=== PATIENT | male | born 1995 | race Caucasian/White ===

== ENCOUNTER 2021-06-27 21:54 | Emergency (ER) | payer OTHER, SELFPAY ==
[2021-06-27 21:58] VITALS: BP 139/80; PULSE 97; RESP 16; TEMP 37.2; O2SAT 99; BMI 33.6
[2021-06-27 22:28] LABS: IDNOW Serial# 9DD0AD1C; Strep A Nucleic Acid Negative (Negative)
--- NOTE | 2021-06-27 22:33 | ED.URI ---
HPI - URI/Sore Throat General Chief Complaint: Upper Respiratory Symptoms Stated Complaint: swollen tonsils Time Seen by Provider: 06/27/21 22:33 Source: patient Mode of arrival: ambulatory Limitations: no limitations History of Present Illness HPI Narrative: Patient c/o sore throat for last 1 week was seen at urgent care 2 days ago strep and COVID test was negative started on amoxicillin comes here as still having throat pain and tonsils are red pain in the neck when swallows had fever prior starting the antibiotic now there is no fever Related Data Previous Rx's Medication Instructions Recorded azithromycin 500 mg tablet 500 mg PO DAILY 2 Days #2 tab 06/27/21 (Zithromax) Allergies Allergy/AdvReac Type Severity Reaction Status Date / Time No Known Allergies Allergy Verified 06/27/21 22:03 Review of Systems Review of Systems: Yes all other systems are reviewed and are negative [facility] Past Medical History Medical History Asthma Social History Social History Advance Directives: No Advance Directives Information Provided: No Physical Exam Vital Signs: Vital Signs: Last Vital Signs Temp 99 F 06/27/21 21:58 Pulse 97 06/27/21 21:58 Resp 16 06/27/21 21:58 BP 139/80 06/27/21 21:58 Pulse Ox 99 06/27/21 21:58 Body Mass Index 33.6 Appearance: Alert. Oriented X3. No acute distress. ENT: Inflamed tonsils b/l , without any exudate uvula midline Neck: Normal inspection. Neck supple. Bilateral anterior cervical lymphadenopathy CVS: Normal heart rate and rhythm. Pulses normal. Respiratory: No respiratory distress. Equal air entry bilateral, no wheezing/rales/rhonchi Abdomen: Soft and nontender. Bowel sounds are present, Skin: Skin warm and dry. Normal skin color. Normal skin turgor. Neuro: Oriented X 3. MDM - URI/Sore Throat Lab Data Labs: Lab Results 06/27/21 Range/Units 22:04 S. pyogenes GrpA ALESSIA Negative (Negative) Discharge Plan Discharge Clinical Impression: Pharyngitis Qualifiers: Pharyngitis/tonsillitis etiology: other specified organisms Qualified Code(s): J02.8 - Acute pharyngitis due to other specified organisms Patient Disposition: Home, Self-Care Instructions: Pharyngitis (ED) Additional Instructions: Drink Plenty of fluids Continue amoxicillin and start taking Zithromax as prescribed Saline gargles Report to the ER/PCP if worsening of the swelling/high fever/difficulty in swallowing next 2 days Prescriptions: New azithromycin [Zithromax] 500 mg tablet 500 mg PO DAILY 2 Days Qty: 2 RF: 0
[2021-06-27] MEDS: Azithromycin 500 MG TABLET PO (22:46)
== END 2021-06-27 23:51 | disposition home or self-care (01) ==
PROVIDERS: Emergency Provider Internal Medicine
DX: J02.8 Acute pharyngitis due to other specified organisms (principal); Z20.822 Contact with and (suspected) exposure to COVID-19
CPT/HCPCS: 36415; 87651; 99283

== ENCOUNTER 2021-06-30 21:32 | Emergency (ER) | payer OTHER, SELFPAY ==
--- NOTE | ~2021-06-30 | CT_ITS ---
EXAMINATION: CT SOFT TISSUE NECK WITH CONTRAST CLINICAL INFORMATION: Sore throat with lymphadenopathy, question abscess COMPARISON: None TECHNIQUE: Following the intravenous administration of 60 of 100 mL of Omnipaque 350 intravenous contrast, helical imaging was performed in the axial plane with generation of coronal and sagittal reformatted images. This CT examination was performed using dose optimization techniques as appropriate, variously including the following: *Automated exposure control *Adjustment of mA and/or kV according to patient size (this includes techniques or standardized protocols for targeted exams where dose is matched to indication/reason for exam; i.e. extremities or head) *Use of iterative reconstruction technique DLP: 658 mGy-cm FINDINGS: There are multiple enlarged bilateral upper cervical lymph nodes measuring up to approximately 2.8 cm in length on the left. The parotid glands are homogeneous in attenuation. The submandibular glands are unremarkable. No contour abnormality or pathologic enhancement is seen within the oral cavity or pharyngeal mucosal space. Bilateral palatine tonsils appear prominent, with no associated abscess. The laryngeal structures appearing unremarkable. The parapharyngeal fat is preserved. The carotid sheath vasculature opacify normally. No extra mucosal soft tissue mass or fluid collection is seen. No retropharyngeal fluid collection is seen. The thyroid gland is normal. The superior mediastinum is unremarkable. The lung apices are clear. Small mucous retention cyst in the right maxillary sinus. Mastoid air cells are well aerated. The temporomandibular joints are normal. There is disc space narrowing at C5-C6 and C6-C7 with associated endplate osteophytes. The imaged portions of the brain parenchyma are unremarkable. CT/CT soft tissue neck w con IMPRESSION: Multiple enlarged bilateral upper cervical lymph nodes which may be reactive/inflammatory; clinical follow-up recommended to assess for resolution. No retropharyngeal or peritonsillar abscess identified. Prominence of the bilateral palatine tonsils may reflect tonsillitis in the proper clinical setting.
[2021-06-30 22:00] VITALS: BP 129/74; PULSE 95; RESP 16; TEMP 37.4; O2SAT 96; BMI 33.6
--- NOTE | 2021-06-30 22:37 | ED_ITS ---
HPI - URI/Sore Throat General Chief Complaint: General Medical Stated Complaint: Fever Time Seen by Provider: 06/30/21 22:21 Source: patient and family (Significant other at bedside) Mode of arrival: ambulatory Limitations: no limitations History of Present Illness HPI Narrative: 26-year-old male with a past medical history of asthma presenting to the ED with complaints of 10 days of a sore throat despite being on amoxicillin and a Z-Ino. He was seen at an urgent care on 06/25/2021 and placed on amoxicillin he reports he is taking as prescribed. Then he reports his symptoms worsened therefore he was seen here on 06/27/2021 and had a negative strep although was placed on a Z-Ino and instructed to take the amoxicillin and Z-Ino. Although he reports that he was instructed to return if he felt like the swelling to his neck was worse therefore he came here for further evaluation treatment because he feels like despite being on both antibiotics and taking Motrin Tylenol the sore throat has not resolved and is worsening. He reports he had a fever today of 101.0. He also reports a dry cough that started today. He denies any dizziness, headaches, neck pain/stiffness, trouble swallowing or breathing, productive cough, ear pain, chest pain or shortness of breath, dyspnea exertion, orthopnea, rashes, recent travel or sick contacts or any other symptoms complaints or concerns at this time. MD elicited complaint: sore throat Onset (ago): day(s) (Ten days) Consistency: constant and progressively worsening Severity: moderate Able to tolerate fluids by mouth: Yes Exacerbating factors: swallowing Relieving factors: nothing Associated symptoms: cough Treatments prior to arrival: other (Currently taking Motrin/Tylenol/amoxicillin and a Z-Ino) Related Data Previous Rx's Medication Instructions Recorded azithromycin 500 mg tablet 500 mg PO DAILY 2 Days #2 tab 06/27/21 (Zithromax) ibuprofen 800 mg tablet 800 mg PO Q8H PRN #14 tab 07/01/21 Allergies Allergy/AdvReac Type Severity Reaction Status Date / Time No Known Allergies Allergy Verified 06/27/21 22:03 Review of Systems Review of Systems: Constitutional : Positive fevers, No Weight loss, No Fever, No Night Sweats, No Fatigue, No Malaise ENT/Mouth : Positive sore throat, No Hearing loss, No Ear Pain, No Nasal Congestion, No Sinus Pain, No Hoarseness, No sore throat, No Rhinorrhea, No Swallowing Difficulty Eyes: No Eye Pain, No Swelling, No Redness, No Foreign Body, No Discharge, No Vision Changes Cardiovascular : No Chest Pain, No SOB, No Dyspnea on Exertion, No Orthopnea, No Edema, No Palpitations Respiratory : Positive Cough, No Sputum, No Wheezing, No Smoke Exposure, No Dyspnea Gastrointestinal : No Nausea, No Vomiting, No Diarrhea, No Constipation, No abdominal Pain, No Hematochezia, No Melena Genitourinary : no irregular bleeding, No Dysuria, No Urinary Frequency, No Hematuria, No Urinary Incontinence, No Urgency, No Flank Pain, No Urinary Flow Changes, No Hesitancy Musculoskeletal : No joint pain, No Myalgias, No Joint Swelling Skin : No Skin Lesions, No rash Neuro : No Weakness, No Numbness, No Paresthesias, No Loss of Consciousness, No Dizziness, No Headache Psych : No Anxiety/Panic, No Depression, No SI/HI/AH/VH, No Social Issues, Heme/Lymph: No Bruising, No Bleeding,No Lymphadenopathy Endocrine : No Polyuria, No Polydipsia, No Temperature Intolerance Yes all other systems are reviewed and are negative [facility] Past Medical History Attestation statement: The following information was validated with the patient. Medical History Asthma Social History Social History Advance Directives: No Advance Directives Information Provided: No Physical Exam Vital Signs: Vital Signs: Last Vital Signs Temp 98.9 F 07/01/21 00:00 Pulse 82 07/01/21 00:00 Resp 17 07/01/21 00:00 BP 114/70 07/01/21 00:00 Pulse Ox 99 07/01/21 00:00 Body Mass Index 33.6 vital signs have been reviewed as normal and appeared to be correct. Blood pressure normal. Heart rate normal. Respiration rate normal. Temperature normal. Oxygen saturation normal. Appearance: Alert. Oriented X3. No acute distress. Head: Normal external exam. Normocephalic. Atraumatic. Eyes: PERRLA. EOMI. Conjunctiva and sclera normal. Eyelids normal. ENT: EAC normal. TM's Normal. Posterior pharynx/tonsils erythematous with exudate noted and bilateral tonsils are inflamed. Uvula is midline. Patient noted to have anterior bilateral cervical chain lymphadenopathy. Moist mucous membranes. No trismus noted. No drooling noted. No muffled voice noted. Neck: Normal inspection. Neck supple. FROM. Thyroid Normal. No meningeal signs. No neck mass noted. CVS: Normal heart rate and rhythm. Heart sound normal. Pulses normal throughout. No murmurs/rales/gallops. Respiratory: No respiratory distress. Painless inspiration. Breath sounds normal. No wheezes/rales/rhonchi noted. Chest nontender. No accessory muscle usage noted or decreased air movement noted. Back: Full range of motion noted. No rashes/lesion/induration/fluctuance or signs of infection noted. Skin: Skin warm and dry. Normal skin color. Normal skin turgor. No rashes/lesions/lacerations noted. Extremities: Extremities exhibit normal range of motion. Extremities nontender. Neuro: Oriented X 3. No motor deficit. No sensory deficit. Reflexes normal. Normal steady gait. No focal neuro deficits noted. Vascular: + radial pulses Normal cap refill. No cyanosis noted to upper extremity nails Course Course Course Narrative: 22:35pm - 26-year-old male with a past medical history of asthma presenting to the ED with complaints of 10 days of a sore throat despite being on amoxicillin and a Z-Ino. He was seen at an urgent care on 06/25/2021 and placed on amoxicillin he reports he is taking as prescribed. Then he reports his symptoms worsened therefore he was seen here on 06/27/2021 and had a negative strep although was p laced on a Z-Ino and instructed to take the amoxicillin and Z-Ino. Although he reports that he was instructed to return if he felt like the swelling to his neck was worse therefore he came here for further evaluation treatment because he feels like despite being on both antibiotics and taking Motrin Tylenol the sore throat has not resolved and is worsening. He reports he had a fever today of 101.0. He also reports a dry cough that started today. Plan: Labs, ESR, CRP, Monospot, blood cultures, lactic acid, CT scan of soft tissue neck to evaluate for any acute processes such of abscesses or any other acute processes. Give a dose of Rocephin and re-evaluate. Reevaluation(s) Reevaluation #1: - labs return and patient mild anemia H&H 13.7/38.0 - carbon dioxide 21. - random glucose 118 - calcium 8.3 - total bilirubin 1.6 - AST 90 - ALT 153 - alkaline phosphate 176 - CRP 1.44 - patient positive for mononucleosis - patient negative for strep - therefore I printed out the results of all his lab work and I gave it to the patient explained to him that his LFTs are elevated today and that she should have repeat blood work within 1-2 weeks to make sure that his LFTs are improving and not worsening although this is usually seen in mononucleosis. - at this time waiting for CT scan of soft tissue neck to evaluate for any acute processes anticipate discharge if CT scan of soft tissue neck is within normal limits with follow-up with PCP within a week and to stay out of any strenuous activity for at least 6 weeks. Patient understands agrees with this plan. Time: 00:44 MDM - URI/Sore Throat Medical Records Attestation: I reviewed the patient's medical records. Lab Data Attestation: I reviewed the patient's lab results. Result diagrams: 06/30/21 23:02 06/30/21 23:02 Labs: Lab Results 06/30/21 06/30/21 06/30/21 Range/Units 23:02 23:02 23:02 WBC 7.9 (4.8-10.8) X10*3/uL RBC 4.25 L (4.60-5.80) X10*6/uL Hgb 13.7 L (14.0-18.0) g/dl Hct 38.0 L (42-52) % MCV 89.4 (80-98) fL MCH 32.2 (27.0-33.0) pg MCHC 36.1 H (31.0-36.0) g/dl RDW 12.0 (11.0-16.0) % Plt Count 210 (160-400) X10*3/uL MPV 9.8 (9.4-12.4) fL Immature Gran % (Auto) 0.8 H (0.0-0.4) % Neut % (Auto) 21.7 L (45-73) % Lymph % (Auto) 68.7 H (20-40) % [place] % (Auto) 7.8 (2-11) % Eos % (Auto) 0.4 (0-4) % Baso % (Auto) 0.6 (0-2) % Lymph # (Auto) 5.4 H (1.2-4.9) X10*3/uL [place] # (Auto) 0.6 (0.1-1.2) X10*3/uL Eos # (Auto) 0.0 (0.0-0.4) X10*3/uL Baso # (Auto) 0.1 (0.0-0.2) X10*3/uL Abs Immat Gran (auto) 0.06 H (0.00-0.03) X10*3/uL Absolute Neuts (auto) 1.7 L (2.0-8.3) X10*3/uL Absolute Nucleated RBC 0.000 (0.0-0.012) X10*3/uL Nucleated RBC % (auto) 0.0 (0.0-0.2) /100WBC Smear Tech's Comments VERIFIED ESR (0-15) MM/HR PT 12.0 (9.9-13.0) SEC INR 1.1 (0.9-1.1) Sodium 137 (135-145) mmol/L Potassium 3.6 (3.3-5.1) mmol/L Chloride 106 (96-108) mmol/L Carbon Dioxide 21 L (22-29) mmol/L Anion Gap 14 (12-20) BUN 12 (9-16) mg/dL Creatinine 0.81 (0.5-1.4) mg/dL Estim Creat Clear Calc 151.0 Estimated GFR > 60 Random Glucose 118 H (60-115) mg/dL Lactic Acid (0.5-2.0) mmol/L Calcium 8.3 L (8.4-10.2) mg/dL Magnesium 2.5 (1.6-2.6) mg/dL Total Bilirubin 1.6 H (0.0-1.0) mg/dL AST 90 H (5-37) U/L ALT 153 H (0-40) U/L Alkaline Phosphatase 176 H (39-117) U/L C-Reactive Protein 1.44 H (< or = 0.50) mg/dL Total Protein 7.1 (6.5-8.0) g/dL Albumin 4.3 (3.5-5.0) g/dL Monoscreen (Negative) S. pyogenes GrpA ALESSIA (Negative) 06/30/21 06/30/21 06/30/21 Range/Units 23:02 23:02 23:02 WBC (4.8-10.8) X10*3/uL RBC (4.60-5.80) X10*6/uL Hgb (14.0-18.0) g/dl Hct (42-52) % MCV (80-98) fL MCH (27.0-33.0) pg MCHC (31.0-36.0) g/dl RDW (11.0-16.0) % Plt Count (160-400) X10*3/uL MPV (9.4-12.4) fL Immature Gran % (Auto) (0.0-0.4) % Neut % (Auto) (45-73) % Lymph % (Auto) (20-40) % [place] % (Auto) (2-11) % Eos % (Auto) (0-4) % Baso % (Auto) (0-2) % Lymph # (Auto) (1.2-4.9) X10*3/uL [place] # (Auto) (0.1-1.2) X10*3/uL Eos # (Auto) (0.0-0.4) X10*3/uL Baso # (Auto) (0.0-0.2) X10*3/uL Abs Immat Gran (auto) (0.00-0.03) X10*3/uL Absolute Neuts (auto) (2.0-8.3) X10*3/uL Absolute Nucleated RBC (0.0-0.012) X10*3/uL Nucleated RBC % (auto) (0.0-0.2) /100WBC Smear Tech's Comments ESR (0-15) MM/HR PT (9.9-13.0) SEC INR (0.9-1.1) Sodium (135-145) mmol/L Potassium (3.3-5.1) mmol/L Chloride (96-108) mmol/L Carbon Dioxide (22-29) mmol/L Anion Gap (12-20) BUN (9-16) mg/dL Creatinine (0.5-1.4) mg/dL Estim Creat Clear Calc Estimated GFR Random Glucose (60-115) mg/dL Lactic Acid 1.3 (0.5-2.0) mmol/L Calcium (8.4-10.2) mg/dL Magnesium (1.6-2.6) mg/dL Total Bilirubin (0.0-1.0) mg/dL AST (5-37) U/L ALT (0-40) U/L Alkaline Phosphatase (39-117) U/L C-Reactive Protein (< or = 0.50) mg/dL Total Protein (6.5-8.0) g/dL Albumin (3.5-5.0) g/dL Monoscreen Positive A (Negative) S. pyogenes GrpA ALESSIA Negative (Negative) 06/30/21 Range/Units 23:02 WBC (4.8-10.8) X10*3/uL RBC (4.60-5.80) X10*6/uL Hgb (14.0-18.0) g/dl Hct (42-52) % MCV (80-98) fL MCH (27.0-33.0) pg MCHC (31.0-36.0) g/dl RDW (11.0-16.0) % Plt Count (160-400) X10*3/uL MPV (9.4-12.4) fL Immature Gran % (Auto) (0.0-0.4) % Neut % (Auto) (45-73) % Lymph % (Auto) (20-40) % [place] % (Auto) (2-11) % Eos % (Auto) (0-4) % Baso % (Auto) (0-2) % Lymph # (Auto) (1.2-4.9) X10*3/uL [place] # (Auto) (0.1-1.2) X10*3/uL Eos # (Auto) (0.0-0.4) X10*3/uL Baso # (Auto) (0.0-0.2) X10*3/uL Abs Immat Gran (auto) (0.00-0.03) X10*3/uL Absolute Neuts (auto) (2.0-8.3) X10*3/uL Absolute Nucleated RBC (0.0-0.012) X10*3/uL Nucleated RBC % (auto) (0.0-0.2) /100WBC Smear Tech's Comments ESR 9 (0-15) MM/HR PT (9.9-13.0) SEC INR (0.9-1.1) Sodium (135-145) mmol/L Potassium (3.3-5.1) mmol/L Chloride (96-108) mmol/L Carbon Dioxide (22-29) mmol/L Anion Gap (12-20) BUN (9-16) mg/dL Creatinine (0.5-1.4) mg/dL Estim Creat Clear Calc Estimated GFR Random Glucose (60-115) mg/dL Lactic Acid (0.5-2.0) mmol/L Calcium (8.4-10.2) mg/dL Magnesium (1.6-2.6) mg/dL Total Bilirubin (0.0-1.0) mg/dL AST (5-37) U/L ALT (0-40) U/L Alkaline Phosphatase (39-117) U/L C-Reactive Protein (< or = 0.50) mg/dL Total Protein (6.5-8.0) g/dL Albumin (3.5-5.0) g/dL Monoscreen (Negative) S. pyogenes GrpA ALESSIA (Negative) Imaging Data CT scan of soft tissue neck with contrast: Attestation: I personally reviewed and interpreted this imaging study as follows: Radiologist's impression: FINDINGS: There are multiple enlarged bilateral upper cervical lymph nodes measuring up to approximately 2.8 cm in length on the left. The parotid glands are homogeneous in attenuation. The submandibular glands are unremarkable. No contour abnormality or pathologic enhancement is seen within the oral cavity or pharyngeal mucosal space. Bilateral palatine tonsils appear prominent, with no associated abscess. The laryngeal structures appearing unremarkable. The parapharyngeal fat is preserved. The carotid sheath vasculature opacify normally. No extra mucosal soft tissue mass or fluid collection is seen. No retropharyngeal fluid collection is seen. The thyroid gland is normal. The superior mediastinum is unremarkable. The lung apices are clear. Small mucous retention cyst in the right maxillary sinus. Mastoid air cells are well aerated. The temporomandibular joints are normal. There is disc space narrowing at C5-C6 and C6-C7 with associated endplate osteophytes. The imaged portions of the brain parenchyma are unremarkable. CT/CT soft tissue neck w con IMPRESSION: Multiple enlarged bilateral upper cervical lymph nodes which may be reactive/inflammatory; clinical follow-up recommended to assess for resolution. No retropharyngeal or peritonsillar abscess identified. Prominence of the bilateral palatine tonsils may reflect tonsillitis in the proper clinical setting. Critical Care Time Critical Care Time Critical Care Time: Yes Total Critical Care Time: 60 Attestation: I personally attest to this time spent taking care of the patient Discharge Plan Discharge Clinical Impression: Monospot test positive, Elevated liver enzymes, Lymphadenopathy, cervical Patient Disposition: Home, Self-Care Instructions: Mononucleosis (ED) Additional Instructions: Your Liver enzymes are elevated I gave you a copy of your results you should have repeat blood work to evaluate your liver enzymes within 1-2 weeks to make sure that they are improving not worsening. You should also stay away from any strenuous activity for at least 6 weeks due to you want to avoid any splenic rupture which is a complication from mononucleosis with strenuous activity. Return if any new or worsening symptoms. Follow up with her primary care provider within a week. Prescriptions: New ibuprofen 800 mg tablet 800 mg PO Q8H PRN (Reason: pain) Qty: 14 RF: 0 No Action azithromycin [Zithromax] 500 mg tablet 500 mg PO DAILY 2 Days Qty: 2 RF: 0 Referrals: Physician,None [Primary Care Provider] - 2 days (your pcp) Stand Alone Forms: Work/School Release Print Language: Korean
[2021-06-30 23:12] LABS: Basophils Absolute Auto 0.1 X10*3/uL (0.0-0.2); Basophils Percent Auto 0.6 % (0-2); Eosinophils Percent Auto 0.4 % (0-4); Hemoglobin 13.7 g/dl (14.0-18.0); Imm Gran Abs Auto 0.06 X10*3/uL (0.00-0.03); Imm Gran Pct Auto 0.8 % (0.0-0.4); Lymphocytes Absolute Auto 5.4 X10*3/uL (1.2-4.9); Lymphocytes Percent Auto 68.7 % (20-40); MANUAL DIFF FLAG SCAN; Mean Corpuscular HGB Conc 36.1 g/dl (31.0-36.0); Mean Corpuscular Hemoglobin 32.2 pg (27.0-33.0); Mean Corpuscular Volume 89.4 fL (80-98); Mean Platelet Volume 9.8 fL (9.4-12.4); Monocytes Absolute Auto 0.6 X10*3/uL (0.1-1.2); Monocytes Percent Auto 7.8 % (2-11); Neutrophils Absolute Auto 1.7 X10*3/uL (2.0-8.3); Neutrophils Percent Auto 21.7 % (45-73); Platelet Count 210 X10*3/uL (160-400); Red Blood Count 4.25 X10*6/uL (4.60-5.80); SCAN SMEAR FLAG 1; White Blood Count 7.9 X10*3/uL (4.8-10.8)
[2021-06-30 23:17] LABS: INTERNATIONAL NORM RATIO 1.1 (0.9-1.1)
[2021-06-30] MEDS: cefTRIAXone sodium 1 GM in 0.9 % Sodium Chloride 50 ML IV (23:20)
[2021-06-30] MEDS: 0.9 % Sodium Chloride 1,000 ML 999 ML IVCONT (23:21)
[2021-06-30 23:22] LABS: Lactic Acid 1.3 mmol/L (0.5-2.0)
[2021-06-30 23:28] LABS: Monotest Positive (Negative)
[2021-06-30 23:30] LABS: SLIDE REVIEW VERIFIED
[2021-06-30 23:34] LABS: IDNOW Serial# 9DD0AD1C; Strep A Nucleic Acid Negative (Negative)
[2021-06-30 23:46] LABS: Erythrocyte Sedimentation Rate 9 MM/HR (0-15)
[2021-06-30 23:48] LABS: Alanine Aminotransferase 153 U/L (0-40); Albumin Level 4.3 g/dL (3.5-5.0); Alkaline Phosphatase 176 U/L (39-117); Anion Gap 14 (12-20); Aspartate Amino Transferase 90 U/L (5-37); Bilirubin Total 1.6 mg/dL (0.0-1.0); Blood Urea Nitrogen 12 mg/dL (9-16); C Reactive Protein 1.44 mg/dL (< or = 0.50); Calcium 8.3 mg/dL (8.4-10.2); Carbon Dioxide 21 mmol/L (22-29); Chloride 106 mmol/L (96-108); Estimated Glomerular Filt Rate > 60; Glucose Random 118 mg/dL (60-115); Magnesium 2.5 mg/dL (1.6-2.6); Potassium 3.6 mmol/L (3.3-5.1); Sodium 137 mmol/L (135-145); Total Protein 7.1 g/dL (6.5-8.0)
[2021-07-01] VITALS: BP 114/70; PULSE 82; RESP 17; TEMP 37.2; O2SAT 99
[2021-07-01] MEDS: iohexoL 350 MG/ML 100 ML INFUS..BTL 60 ML IV (00:27)
--- NOTE | 2021-07-01 01:08 | PC.NURSE ---
REPORT GIVEN TO RICKEY AVELAR.
== END 2021-07-01 01:21 | disposition home or self-care (01) ==
PROVIDERS: Physician Assistant Medical; Emergency Provider Internal Medicine
DX: B27.90 Infectious mononucleosis, unspecified without complication (principal); R59.0 Localized enlarged lymph nodes; R74.8 Abnormal levels of other serum enzymes; J45.909 Unspecified asthma, uncomplicated
CPT/HCPCS: 36415; 70491; 80053; 83605; 83735; 85025; 85610; 85652; 86140; 86308; 87040; 87651; 96365; 99284; J0696; Q9967

== ENCOUNTER 2022-08-29 08:00 | Outpatient (REF) | payer OTHER, SELFPAY ==
[2022-08-29 11:59] LABS: Cholesterol 178 mg/dL; Glucose Fasting 89 mg/dL (60-99); HDL Cholesterol 43 mg/dL; LDL Cholesterol Calculated 111 mg/dl; Triglycerides 122 mg/dL
== END 2022-08-29 08:01 | disposition home or self-care (01) ==
LOC: HO.HMGCLDS 08:00
PROVIDERS: PCP Family Medicine; Visit Provider Family Medicine
DX: Z82.49 Family history of ischemic heart disease and other diseases of the circulatory system (principal)
CPT/HCPCS: 36415; 80061; 82947

== ENCOUNTER 2022-10-10 08:19 | Outpatient (REF) | payer OTHER, SELFPAY ==
[2022-10-10 10:50] LABS: MANUAL DIFF FLAG NO
[2022-10-10 10:55] LABS: Basophils Absolute Auto 0.1 X10*3/uL (0.0-0.2); Basophils Percent Auto 1.2 % (0-2); Eosinophils Absolute Auto 0.2 X10*3/uL (0.0-0.4); Eosinophils Percent Auto 2.4 % (0-4); Hematocrit 47.1 % (42.0-52.0); Hemoglobin 16.7 g/dl (14.0-18.0); Imm Gran Abs Auto 0.03 X10*3/uL (0.00-0.03); Imm Gran Pct Auto 0.4 % (0.0-0.4); Lymphocytes Percent Auto 30.1 % (20-40); Mean Corpuscular HGB Conc 35.5 g/dl (31.0-36.0); Mean Corpuscular Hemoglobin 31.5 pg (27.0-33.0); Mean Corpuscular Volume 88.7 fL (80.0-98.0); Mean Platelet Volume 10.1 fL (9.4-12.4); Monocytes Absolute Auto 0.6 X10*3/uL (0.1-1.2); Monocytes Percent Auto 9.5 % (2-11); Neutrophils Absolute Auto 3.8 x10*3/uL (2.0-8.3); Neutrophils Percent Auto 56.4 % (45-73); Platelet Count 306 X10*3/uL (160-400); Red Blood Count 5.31 X10*6/uL (4.60-5.80); Red Cell Distribution Width 11.7 % (11.0-16.0); White Blood Count 6.7 X10*3/uL (4.8-10.8)
[2022-10-10 11:33] LABS: Erythrocyte Sedimentation Rate 2 MM/HR (0-15)
[2022-10-10 12:18] LABS: Anion Gap 17 (12-20); C Reactive Protein 0.24 mg/dL (< or = 0.50); Carbon Dioxide 22 mmol/L (22-29); Chloride 104 mmol/L (96-108); Potassium 4.2 mmol/L (3.3-5.1); Sodium 139 mmol/L (135-145)
[2022-10-15 08:29] LABS: Transglutaminase Ab IgG <1.0 U/mL
== END 2022-10-10 08:20 | disposition home or self-care (01) ==
LOC: HO.HMGCLDS 08:19
PROVIDERS: Visit Provider Family Medicine
DX: R10.13 Epigastric pain (principal); E11.9 Type 2 diabetes mellitus without complications
CPT/HCPCS: 36415; 80051; 85025; 85652; 86140; 86364

== ENCOUNTER 2025-05-28 09:47 | Outpatient (AMB) | payer OTHER, SELFPAY ==
--- NOTE | 2025-05-28 09:55 | A.OFFPC_ITS ---
Vital Signs 05/28/25 09:59 Height 5 ft 7 in Weight 102.512 kg BMI 35.4 BP 108/66 Respiration 14 Pulse 72 Pulse Source Pulse Oximeter Temp 97.9 F Temp Source Temporal Artery Scan Pulse Oximetry (%) 97 Oxygen Delivery Method Room Air Intake Visit Reasons: 3 MO F/UP - ANDREW PT Combo Welder Required: No Accompanied by: Self / Same As Patient Allergies No Known Allergies Allergy (Verified 05/28/25 09:55) Medication List - Last Reconciled 05/28/25 by ELLIE Gamino albuterol sulfate 90 mcg/actuation 1 puff inhalation TID famotidine (Pepcid) 20 mg PO DAILY Tobacco use date assessed: 05/28/25 Dental Screening Dental Screen Date: 05/28/25 Did you have a dental visit in the last 12 months?: Yes Did you have a dental problem in the last 6 months where you did not have access to dental care?: No Was dental information given to patient?: No HPI HPI Comments History of Present Illness Details 30 year old male with history of asthma, sylwia, hld, IBS, GERD presenting to the office today for management of chronic conditions and to establish care Mild intermittent- triggered by exercise or URI. Otherwise rare albuterol use. Has never requried prednisone SYLWIA- CPAP all night HLD- last LDL 111, not on statin GERD- famotidine. Reports worsening symptoms with omeprazole. 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 Concerns: Reporting symptoms of depression/anxiety. No SI/HI. PHQ-9 score 11, evin 7 score 15 Concerns about peanut allergy- no hives, difficulty swallowing, swelling. GI upset/abdominal pain, concerned about allergy. No pruritus, respiratory symptoms, rash Health Maintenance: Colonoscopy to start at 43 ROS: See HPI EXAM: Constitutional - Awake and Alert, No apparent distress Eyes - PERRL Cardiovascular - S1S2, RRR, No edema Respiratory - Normal lung expansion, Normal respiratory effort, No respiratory distress, CTA bilaterally Extremities - no calf tenderness bilaterally, no swelling Skin - Warm/Dry Neurological - Alert & oriented x3 Psychological - Appropriate affect, depressed mood PFSH Medical History Asthma Family History (Updated 05/28/25 @ 10:29 by ELLIE Gamino) Mother Diabetes Social History Housing: House Patient Tobacco Use Status: Never used Tobacco e-Cigarette/Vaping Use: Never Used service: No Current occupational status: employed Cognitive needs: No Hearing needs: No Vision needs: No Questionnaire PHQ-9 Over the last 2 weeks, how often have you been bothered by any of the following problems? 1. Little interest or pleasure in doing things: more than half the days 2. Feeling down, depressed, or hopeless: more than half the days 3. Trouble falling or staying asleep, or sleeping too much: not at all 4. Feeling tired or having little energy: more than half the days 5. Poor appetite or overeating: more than half the days 6. Feeling bad about yourself - or that you are a failure or have let yourself or your family down: more than half the days 7. Trouble concentrating on things, such as reading the newspaper or watching television: several days 8. Moving or speaking so slowly that other people could have noticed. Or the opposite - being so fidgety or restless that you have been moving around a lot more than usual: not at all 9. Thoughts that you would be better off or of hurting yourself in some way: not at all Total score: 11 Depression Screening Interpretation: Positive Depression Screening Done: Yes 73230 - PHQ-9 Billing: Yes Source: Developed by Drs. Howard Carl, Teri Rodriguez, Hal Mcbride and colleagues, with an educational angelica from [employer]. Thrive Questionnaire Date Thrive assessed: 05/28/25 I am a: Patient What is your living situation today?: I have a steady place to live Within the past 12 months, did the food you bought not last and you didn't have the money to get more?: Never true Within the past 12 months, did you worry whether your food would run out before you got money to buy more?: Never true Do you have trouble paying for medicines?: No Do you have trouble getting transportation to medical appointments?: No Do you have trouble paying your heating and electricity bill?: No Do you have trouble taking care of your child, family member or friend?: No Do you have trouble with day-to-day activities such as bathing, preparing meals, shopping, managing finances, etc.?: No Are you currently unemployed and looking for a job?: No Are you interested in more education?: No Please select the resources that you would like help with: None Currently or been in a relationship where the following occur: No concerns reported THRIVE Score: 0 AUDIT C Alcohol Use Questionnaire (AUDIT-C) 1. How often do you have a drink containing alcohol?: Monthly or less Total Score: 1 EVIN-7 AMB Questionnaire EVIN-7 Date EVIN - 7 assessed: 05/28/25 Feeling nervous, anxious, or on edge: 3 = Nearly every day Not being able to stop or control worryin = Nearly every day Worrying too much about different things: 3 = Nearly every day Trouble relaxin = Several days Being so restless that it is hard to sit still: 1 = Several days Becoming easily annoyed or irritable: 3 = Nearly every day Feeling afraid as if something awful might happen: 1 = Several days Total EVIN-7 score (0-4 normal; 5-9 mild; 10-14 moderate; 15-21 severe): 15 Source: Developed by Drs. Howard Carl, Teri Rodriguez, Hal Mcbride and colleagues, with an educational angelica from [employer]. EVIN-7 Assessment Billing EVIN-7 Assessment Tool: EVIN-7 Assessment 99636 Physical exam (Primary Care) Vital Signs: Last Vital Signs Temp 97.9 F 05/28/25 09:59 Pulse 72 05/28/25 09:59 Resp 14 05/28/25 09:59 BP 108/66 05/28/25 09:59 Pulse Ox 97 05/28/25 09:59 Oxygen Delivery Method Room Air 05/28/25 09:59 BMI result Body Mass Index 35.4 Tobacco/Smoking Status: Tobacco use Status Tobacco use date assessed 05/28/25 05/28/25 10:03 Patient Tobacco Use Status Never used Tobacco 05/28/25 10:03 e-Cigarette/Vaping Use Never Used 05/28/25 10:03 PHQ-9: PHQ-9 Score PHQ-9: Total score 11 05/28/25 10:03 Depression Screening Interpretation: Positive Thrive Assessment: Date of Thrive Assessment Date Thrive assessed 05/28/25 05/28/25 10:03 Currently or been in a relationship where the following occur: No concerns reported Coding Level of Care Code New Pt Level 4 (69726) Complex EM visit Add On G2211 Diagnoses Peanut allergy Z91.010 Asthma J45.909 Obesity E66.9 SYLWIA (obstructive sleep apnea) G47.33 HLD (hyperlipidemia) E78.5 Major depressive disorder F32.9 Additional Codes PHQ-9 - 59083 - PHQ-9 Billing: Yes ([id number]) EVIN-7 Assessment Billing - EVIN-7 Assessment Tool: EVIN-7 Assessment 91870 ([id number]) Assessment & Plan Assessment & Plan (1) Peanut allergy: Code(s): Z91.010 - Allergy to peanuts Category: Medical Plan: Pt concern. Likely sensitivity. No anaplyaxis. Avoid triggers. Pt requests referral to production operations engineer, referral placed (2) Asthma: Code(s): J45.909 - Unspecified asthma, uncomplicated Category: Medical Plan: Stable. Albuterol p.r.n. (3) Obesity: Code(s): E66.9 - Obesity, unspecified Category: Medical Plan: Counseled on healthy diet. Handout provided. Recommend moderate intensity exercise for at least 150 minutes weekly. (4) SYLWIA (obstructive sleep apnea): Code(s): G47.33 - Obstructive sleep apnea (adult) (pediatric) Category: Medical Plan: Continue CPAP (5) HLD (hyperlipidemia): Code(s): E78.5 - Hyperlipidemia, unspecified Category: Medical Plan: Lipid panel ordered (6) Major depressive disorder: Code(s): F32.9 - Major depressive disorder, single episode, unspecified Category: Medical Plan: PHQ 9 score 11, evin 7 score 15. Initiate escitalopram 10 mg daily, start with 5 mg daily x1 week then increase dose to 1 tab. Counseled on side effects including black box warning. No alarm symptoms at this time. Given information to seek out counselor. Plan Follow-up in the office in 4-6 weeks. Labs to be completed following visit today. Orders: Orders LDL Cholesterol Direct Today E78.5 - Hyperlipidemia, unspecified Basic Metabolic Panel Today E66.9 - Obesity, unspecified, E78.5 - Hyperlipidemia, unspecified, G47.33 - Obstructive sleep apnea (adult) (pediatric), J45.909 - Unspecified asthma, uncomplicated, K58.9 - Irritable bowel syndrome, unspecified Complete Blood Count Auto Diff Today E66.9 - Obesity, unspecified, E78.5 - Hyperlipidemia, unspecified, G47.33 - Obstructive sleep apnea (adult) (pediatric), J45.909 - Unspecified asthma, uncomplicated, K58.9 - Irritable bowel syndrome, unspecified Hemoglobin A1c Today E66.9 - Obesity, unspecified, E78.5 - Hyperlipidemia, unspecified, G47.33 - Obstructive sleep apnea (adult) (pediatric), J45.909 - Uns pecified asthma, uncomplicated, K58.9 - Irritable bowel syndrome, unspecified Lipid Panel Today E66.9 - Obesity, unspecified, E78.5 - Hyperlipidemia, unspecified, G47.33 - Obstructive sleep apnea (adult) (pediatric), J45.909 - Unspecified asthma, uncomplicated, K58.9 - Irritable bowel syndrome, unspecified Liver Panel Today E66.9 - Obesity, unspecified, E78.5 - Hyperlipidemia, unspecified, G47.33 - Obstructive sleep apnea (adult) (pediatric), J45.909 - Unspecified asthma, uncomplicated, K58.9 - Irritable bowel syndrome, unspecified Ferritin Today E66.9 - Obesity, unspecified, E78.5 - Hyperlipidemia, unspecified, F32.9 - Major depressive disorder, single episode, unspecified, G47.33 - Obstructive sleep apnea (adult) (pediatric), J45.909 - Unspecified asthma, uncomplicated Referrals Allergy & Immunology Referral Z91.010 - Allergy to peanuts Medications: New escitalopram oxalate Take 1/2 tab daily x1 week, then increase to 1 tab daily 10 mg PO DAILY 100 tabs 0RF Discontinued azithromycin (Zithromax) start on day 2 of therapy Discontinued Reason: Patient Completed Course 500 mg PO DAILY 2 days 2 tabs 0RF ibuprofen Discontinued Reason: Patient Completed Course 800 mg PO Q8H PRN 14 tabs 0RF pain Patient Instructions: Check [email or web address] for a list of therapists Start escitalopram daily
[2025-05-28 09:59] VITALS: BP 108/66; PULSE 72; RESP 14; TEMP 36.6; O2SAT 97; BMI 35.4
== END 2025-05-28 10:36 | disposition home or self-care (01) ==
LOC: HO.HMCHD 09:47
PROVIDERS: PCP Family Medicine; Visit Provider Physician Assistant
DX: Z91.010 Allergy to peanuts (principal); J45.909 Unspecified asthma, uncomplicated; E66.9 Obesity, unspecified; G47.33 Obstructive sleep apnea (adult) (pediatric); E78.5 Hyperlipidemia, unspecified; F32.9 Major depressive disorder, single episode, unspecified

== ENCOUNTER 2025-05-28 10:54 | Outpatient (REF) | payer OTHER, SELFPAY ==
[2025-05-28 13:12] LABS: MANUAL DIFF FLAG NO
[2025-05-28 13:20] LABS: Hematocrit 44.4 % (42.0-52.0); Hemoglobin 15.7 g/dl (14.0-18.0); Imm Gran Abs Auto 0.04 X10*3/uL (0.00-0.03); Imm Gran Pct Auto 0.5 % (0.0-0.4); Lymphocytes Absolute Auto 2.5 X10*3/uL (1.2-4.9); Mean Corpuscular HGB Conc 35.4 g/dl (31.0-36.0); Mean Corpuscular Hemoglobin 31.8 pg (27.0-33.0); Mean Corpuscular Volume 89.9 fL (80.0-98.0); NRBC Abs Auto 0.000 X10*3/uL (0.0-0.012); NRBC Pct Auto 0.0 /100WBC (0.0-0.2); Platelet Count 301 X10*3/uL (160-400); Red Blood Count 4.94 X10*6/uL (4.60-5.80); White Blood Count 7.5 X10*3/uL (4.8-10.8)
[2025-05-28 13:28] LABS: Hemoglobin A1C 135.8954 umol/L; Total Hemoglobin (HGBA1C) 4038.4981 umol/L
[2025-05-28 13:36] LABS: Alanine Aminotransferase 74 U/L (0-40); Albumin Level 4.8 g/dL (3.5-5.0); Alkaline Phosphatase 76 U/L (39-117); Anion Gap 9 (12-20); Aspartate Amino Transferase 28 U/L (5-37); Blood Urea Nitrogen 14 mg/dL (9-16); Calcium 9.0 mg/dL (8.4-10.2); Carbon Dioxide 29 mmol/L (22-29); Chloride 106 mmol/L (96-108); Cholesterol 200 mg/dL (<200); Estimated Glomerular Filt Rate > 60; HDL Cholesterol 42 mg/dL (>40); Potassium 4.0 mmol/L (3.3-5.1); Sodium 140 mmol/L (135-145); Total Protein 7.5 g/dL (6.5-8.0); Triglycerides 271 mg/dL (<150)
[2025-05-28 13:52] LABS: Ferritin 270 ng/mL (20-250)
== END 2025-05-28 10:55 | disposition home or self-care (01) ==
LOC: HO.10HDL 10:54
PROVIDERS: Visit Provider Physician Assistant
DX: K58.9 Irritable bowel syndrome, unspecified (principal); Z91.010 Allergy to peanuts; F32.9 Major depressive disorder, single episode, unspecified; E78.5 Hyperlipidemia, unspecified; G47.33 Obstructive sleep apnea (adult) (pediatric); J45.909 Unspecified asthma, uncomplicated; E66.9 Obesity, unspecified; Z68.35 Body mass index [BMI] 35.0-35.9, adult; Z71.3 Dietary counseling and surveillance
CPT/HCPCS: 36415; 80048; 80061; 80076; 82728; 83036; 83721; 85025; 96127